=== PATIENT | female | born 1990 | race Two or more races ===

== ENCOUNTER → 2019-11-09 | Outpatient (CLI) | payer OTHER | END | disposition home or self-care (01) | LOC: PRENATAL 14:15 | DX: O36.80X1 Pregnancy with inconclusive fetal viability, fetus 1 (principal) ==

== ENCOUNTER 2019-11-23 15:26 | Inpatient (IN) | payer OTHER ==
[~2019-11-23] VITALS: Ht 170.2 cm; Wt 68.0 kg
== END 2019-11-25 12:13 | disposition home or self-care (01) | DRG 806 ==
LOC: LDR 15:26 → OB/GYN 11-24 10:14
PROVIDERS: ADMIT Obstetrics & Gynecology
PROC: 10D07Z8 Extraction of Products of Conception, Other, Via Natural or Artificial Opening (ICD-10-PCS; principal; 2019-11-25)
PROC: 3E033VJ Introduction of Other Hormone into Peripheral Vein, Percutaneous Approach (ICD-10-PCS; 2019-11-25)
DX: O36.4XX0 Maternal care for intrauterine death, not applicable or unspecified (principal); Q91.7 Trisomy 13, unspecified; Z37.1 Single stillbirth; Z3A.20 20 weeks gestation of pregnancy

== ENCOUNTER → 2019-11-23 | Outpatient (CLI) | payer OTHER | END | disposition home or self-care (01) | LOC: PRENATAL 13:35 | DX: O28.5 Abnormal chromosomal and genetic finding on antenatal screening of mother (principal); O35.0XX1 Maternal care for (suspected) central nervous system malformation in fetus, fetus 1; O35.3XX1 Maternal care for (suspected) damage to fetus from viral disease in mother, fetus 1 ==

== ENCOUNTER 2021-11-26 05:13 | Inpatient (IN) | payer OTHER ==
[~2021-11-26] VITALS: Ht 170.2 cm; Wt 69.4 kg
[2021-11-26] MEDS ORDERED: PRENATAL TABLE1 EAC1 PO (06:17)
[2021-11-26] MEDS ORDERED: PROGESTERONE200 MG (10:44)
== END 2021-11-29 13:54 | disposition home or self-care (01) | DRG 788 ==
LOC: LDR 05:13 → SURG-SUITE 05:13
PROVIDERS: ADMIT Specialist; ATTEND Specialist
PROC: 4A1HXCZ Monitoring of Products of Conception, Cardiac Rate, External Approach (ICD-10-PCS; 2021-11-26)
PROC: 10D00Z1 Extraction of Products of Conception, Low, Open Approach (ICD-10-PCS; principal; 2021-11-26 20:00)
DX: O62.1 Secondary uterine inertia (principal); Z3A.39 39 weeks gestation of pregnancy; Z37.0 Single live birth; Z20.822 Contact with and (suspected) exposure to COVID-19